=== PATIENT | female | born 1965 | race Caucasian/White ===

== ENCOUNTER 2021-07-26 03:24 | Emergency (ER) | payer OTHER ==
[2021-07-26 06:57] LABS: HEMOGLOBIN 12.9 gm/dl (12.3-15.3); RED BLOOD COUNT 4.46 M/UL (4.00-5.10); WHITE BLOOD COUNT 9.1 K/UL (4.5-11.0)
[2021-07-26 08:46] LABS: BUN/CREATININE RATIO 14 (0-10)
[2021-07-26] MEDS ORDERED: CATAPRES 0.1MG0.1 MG PO (11:29)
== END 2021-07-26 11:57 | disposition home or self-care (01) ==
LOC: ER1 03:24
PROVIDERS: Emergency Medicine
DX: R07.89 Other chest pain (principal); E78.5 Hyperlipidemia, unspecified; I10 Essential (primary) hypertension; Z79.899 Other long term (current) drug therapy; Z20.822 Contact with and (suspected) exposure to COVID-19
CPT/HCPCS: 70450; 71045; 80053; 83735; 83880; 84484; 85025; 93005; 99285; U0002

== ENCOUNTER → 2021-10-10 | Outpatient (CLI) | payer OTHER ==
[~2021-10-10] MED LIST: BONIVA150 MG PO; CATAPRES 0.1MG0.1 MG PO; DILTIAZEM 24HR180 M1 PO; LEVOTHYROXINE50 MCG PO; MULTI-VITAMIN1 EACH PO; PROZAC40 MG PO; VITAMIN D PO
[2021-10-10 10:45] LABS: HEMOGLOBIN 12.3 gm/dl (12.3-15.3); RED BLOOD COUNT 4.18 M/UL (4.00-5.10); WHITE BLOOD COUNT 8.2 K/UL (4.5-11.0)
[2021-10-10 11:05] LABS: BUN/CREATININE RATIO 30 (0-10)
== END ==
LOC: OPSV2 10:00 → EDSTATUS 10:00 → OPSV2 10:08
PROVIDERS: Orthopaedic Surgery
DX: Z01.818 Encounter for other preprocedural examination (principal); M17.12 Unilateral primary osteoarthritis, left knee
CPT/HCPCS: 71046; 80048; 81001; 85025; 93005

== ENCOUNTER → 2021-10-23 | Outpatient (CLI) | payer OTHER ==
[2021-10-23 10:10] LABS: BUN/CREATININE RATIO 21 (0-10)
== END ==
LOC: LAB 09:03
PROVIDERS: Neurological Surgery
DX: Z01.812 Encounter for preprocedural laboratory examination (principal); M17.12 Unilateral primary osteoarthritis, left knee
CPT/HCPCS: 36415; 80048; 86850; 86900; 86901

== ENCOUNTER 2021-10-24 08:12 | Day surgery (SDC) | payer OTHER ==
[~2021-10-24] VITALS: Ht 154.9 cm; Wt 81.4 kg
[2021-10-25] MEDS ORDERED: VAZALORE325 MG PO (07:05)
[2021-10-25] MEDS ORDERED: HYDROCODON-ACE1 EAC6 PO (07:05)
[2021-10-25 07:30] LABS: HEMOGLOBIN 11.3 gm/dl (12.3-15.3); RED BLOOD COUNT 3.88 M/UL (4.00-5.10); WHITE BLOOD COUNT 13.4 K/UL (4.5-11.0)
[2021-10-25 07:42] LABS: BUN/CREATININE RATIO 22 (0-10)
[2021-10-26] MEDS ORDERED: AMLODIPINE BESYL5 MG PO (09:53)
--- NOTE | 2021-10-26 13:44 | NUR ---
Called report to staff research scientist nurse at [facility]
== END 2021-10-26 12:54 | disposition home or self-care (01) ==
LOC: OR 08:12 → M/S 08:12 → OR 10-26 12:54
PROVIDERS: Internal Medicine
DX: M17.12 Unilateral primary osteoarthritis, left knee (principal); I10 Essential (primary) hypertension; E03.9 Hypothyroidism, unspecified; E66.01 Morbid (severe) obesity due to excess calories; Z86.16 Personal history of COVID-19; Z98.84 Bariatric surgery status
CPT/HCPCS: 36415; 73560; 76000; 80048; 85025; 97110-GP-CQ; 97116-GP-CQ; 97161; 97166; 97530; 97530-GP-CQ; 97535; C1776; J0690; J1100; J1170; J1650; J1885; J2001; J2250; J2405; J2704; J2795; J3010; J3370; J7120

== ENCOUNTER 2022-03-05 23:25 | Emergency (ER) | payer OTHER ==
[~2022-03-05 23:25] MED LIST changes: +AMLODIPINE BESYL5 MG PO; +HYDROCODON-ACE1 EAC6 PO; +VAZALORE325 MG PO
[2022-03-05 23:50] LABS: RED BLOOD COUNT 4.33 M/UL (4.00-5.10); WHITE BLOOD COUNT 9.1 K/UL (4.5-11.0)
[2022-03-06 00:25] LABS: BUN/CREATININE RATIO 41 (0-10)
[2022-03-06] MEDS ORDERED: TORADOL 10 MG T10 MG PO (08:07)
[2022-03-06] MEDS ORDERED: CYCLOBENZAPRINE10 MG PO (08:07)
== END 2022-03-06 08:40 | disposition home or self-care (01) ==
LOC: ER1 23:25
PROVIDERS: Family Medicine
DX: R07.2 Precordial pain (principal); I10 Essential (primary) hypertension; Z20.822 Contact with and (suspected) exposure to COVID-19
CPT/HCPCS: 0240U; 71046; 80053; 82550; 82553; 84484; 85025; 85379; 93005; 96374; 96375; 99285; J1885; J2270; J2405; Q9967

== ENCOUNTER → 2022-04-11 | Outpatient (CLI) | payer OTHER ==
[~2022-04-11] MED LIST changes: +CYCLOBENZAPRINE10 MG PO; +TORADOL 10 MG T10 MG PO
== END ==
LOC: HEART 5 04-05 11:30
DX: R07.9 Chest pain, unspecified (principal)
CPT/HCPCS: 93306

== ENCOUNTER 2022-07-08 16:49 | Emergency (ER) | payer OTHER ==
[2022-07-08 20:04] LABS: BUN/CREATININE RATIO 18 (0-10)
[2022-07-08] MEDS ORDERED: IBU800 MG PO (22:24)
[2022-07-08 22:29] LABS: HEMOGLOBIN 12.8 gm/dl (12.3-15.3); RED BLOOD COUNT 4.52 M/UL (4.00-5.10); WHITE BLOOD COUNT 10.3 K/UL (4.5-11.0)
== END 2022-07-08 22:38 | disposition home or self-care (01) ==
LOC: ER1 16:49
PROVIDERS: Physician Assistant
DX: R10.9 Unspecified abdominal pain (principal)
CPT/HCPCS: 80053; 81001; 83690; 85025; 87086; 96374; 96375; 99284; J1885; J2405; Q9967